=== PATIENT | female | born 1985 | race Caucasian/White ===

== ENCOUNTER → 2018-03-04 00:21 | Outpatient (CLI) | payer BC, SELFPAY ==
--- NOTE | 2018-03-04 07:52 | DI.REPORT_ITS ---
SYMPTOM/DIAGNOSIS: CHRONIC RUQ PAIN MILD BILIRUBIN ELEVATION ABDOMEN ULTRASOUND: The liver is normal in size and echogenicity. The gallbladder has a normal appearance. No sonographic Chacko's sign is seen. There is no biliary dilatation. The spleen, pancreas, kidneys and aorta appear normal. There is no ascites. IMPRESSION: Negative abdomen ultrasound.
== END ==
PROVIDERS: PCP Naturopath; Visit Provider Naturopath
DX: R10.11 Right upper quadrant pain (principal); R79.89 Other specified abnormal findings of blood chemistry
CPT/HCPCS: 76700

== ENCOUNTER 2018-04-11 00:26 | Outpatient (CLI) | payer BC, SELFPAY ==
--- NOTE | 2018-04-11 08:35 | DI.MRI_ITS ---
SYMPTOM/DIAGNOSIS: VERTIGO, UNSTEADINESS, R26.81, R42 BRAIN MRI: Routine noncontrast examination. No priors for comparison. MRI examination of the brain was performed according to the usual protocol. Ventricular system is normal in appearance. No signal abnormality identified in the brain. There is normal flow void in the [place] vasculature. The orbital and temporal bone structures appear intact. Diffusion weighted imaging is within normal limits with no evidence of cerebral infarction. Susceptibility weighted imaging shows no evidence of hemorrhage. CONCLUSION: Normal brain MRI.
== END 2018-04-11 00:46 ==
PROVIDERS: PCP Naturopath; Visit Provider Psychiatry & Neurology Neurology
DX: R42 Dizziness and giddiness (principal); R26.81 Unsteadiness on feet
CPT/HCPCS: 70551

== ENCOUNTER 2018-08-26 00:55 | Outpatient (CLI) | payer BC, SELFPAY ==
--- NOTE | 2018-08-26 15:14 | DI.US_ITS ---
SYMPTOMS/DIAGNOSIS: RT BREAST PAIN, PAINFUL LUMPY RT BREAST, N64.6, N63.10 RIGHT BREAST ULTRASOUND: The patient has a palpable abnormality in the lateral right breast. No cyst or mass is seen. There is a small lymph node in the 3:00 o'clock position 8 cm from the nipple. IMPRESSION: Small intramammary lymph node has a normal appearance. There are no suspicious findings.
== END 2018-08-26 01:15 ==
PROVIDERS: PCP Naturopath; Visit Provider Nurse Practitioner Family
DX: N64.4 Mastodynia (principal); N63.12 Unspecified lump in the right breast, upper inner quadrant; R59.0 Localized enlarged lymph nodes
CPT/HCPCS: 76642

== ENCOUNTER 2018-11-18 00:55 | Outpatient (CLI) | payer BC, SELFPAY ==
--- NOTE | 2018-11-18 13:12 | DI.US_ITS ---
SYMPTOMS/DIAGNOSIS: MID CYCLIC PELVIC PAIN AND BLEEDING, RIGHT LOWER QUADRANT ABDOMINAL PAIN, R10.31 PELVIC ULTRASOUND: Transabdominal and transvaginal examination was performed. The uterus measures 8.1 cm long x 4.4 cm AP x 7.3 cm transverse. The uterus is retroverted. The endometrial stripe is within normal limits at 0.9 cm. No myometrial mass is present. The right ovary measures 3.2 x 2.3 x 2.4 cm, the left ovary measures 3.8 x 2 x 1.8 cm. Small follicular cysts are seen. There is normal blood flow to the ovaries. No evidence of torsion is seen. No significant free pelvic fluid or hydronephrosis is identified. The right lower quadrant was evaluated sonographically. No sonographic abnormality is seen. IMPRESSION: Normal pelvic ultrasound.
== END 2018-11-18 01:15 ==
PROVIDERS: PCP Naturopath; Visit Provider Obstetrics & Gynecology Gynecology
DX: R10.31 Right lower quadrant pain (principal); R10.2 Pelvic and perineal pain; N92.1 Excessive and frequent menstruation with irregular cycle
CPT/HCPCS: 76830; 76856

== ENCOUNTER 2019-01-07 00:31 | Outpatient (CLI) | payer BC, SELFPAY ==
--- NOTE | 2019-01-07 07:00 | DI.US_ITS ---
SYMPTOM/DIAGNOSIS: PALPABLE BULGE LOWER RT ABD, BULGE SORE WITH ACTIVITY AND DIRECT PALPATION, EVALUATE FOR HERNIA VS VASCULAR HERNIA ULTRASOUND: An ultrasound of the right inguinal region was carried out. There is nothing to suggest an inguinal hernia. Note is made of multiple lymph nodes, the largest of which measures 1.6 by 0.4 by 1.3 cm. The study is otherwise unremarkable.
[2019-01-07 08:16] LABS: HCT 44.1 % (36.0-46.0); HGB 15.5 g/dL (12.0-15.5); Mean Corp. HGB Concentration 35.1 g/dL (32.0-36.0); Mean Corpuscular Hemoglobin 30.8 pg (27.0-33.0); Mean Corpuscular Volume 87.7 fL (80-95); Mean Platelet Volume 10.9 fL (8.0-11.0); Platelet Count 237 x1000/uL (130-400); RBC 5.03 m/cumm (4.00-5.20); RBC Distribution Width 13.8 % (11.7-14.6); White Blood Cell Count 3.56 k/cumm (4.4-10.8)
[2019-01-07 09:51] LABS: FREE T4 0.95 ng/dL (0.76-1.46); TSH 1.71 uIU/mL (0.358-3.74)
[2019-01-07 10:18] LABS: Ferritin 28 ng/mL (8-388)
[2019-01-07 21:44] LABS: T3,Free 3.6 pg/ml (2.8-5.3)
[2019-01-08 06:53] LABS: Vitamin D 25 Total 41.6 ng/ml (30-100)
== END 2019-01-07 00:51 ==
PROVIDERS: PCP Naturopath; Visit Provider Naturopath
DX: R53.83 Other fatigue (principal); R42 Dizziness and giddiness; R59.0 Localized enlarged lymph nodes; R19.03 Right lower quadrant abdominal swelling, mass and lump
CPT/HCPCS: 36415; 76857; 82306; 85027; 82728; 84439; 84443; 84481

== ENCOUNTER 2019-01-20 12:12 | Outpatient (REF) | payer BC, SELFPAY ==
[2019-01-21 12:02] LABS: Campylobacter PCR SEE COMMENTS; Salmonella PCR SEE COMMENTS; Shiga Toxin PCR SEE COMMENTS; Shigella/Enteroinvasive Ecoli SEE COMMENTS
== END 2019-01-20 12:32 ==
LOC: LBN 12:12
PROVIDERS: PCP Naturopath; Visit Provider Obstetrics & Gynecology Gynecology
DX: R19.7 Diarrhea, unspecified (principal)
CPT/HCPCS: 87505

== ENCOUNTER 2019-02-04 00:31 | Outpatient (CLI) | payer BC, SELFPAY ==
--- NOTE | 2019-02-04 12:00 | DI.US_ITS ---
SYMPTOMS/DIAGNOSIS: RT INGUINAL LYMPHADENOPATHY AND TENDERNESS TO PALPATION X 2 MONTHS, COMPARE TO 01/07/19 US BILATERAL INGUINAL ULTRASOUND: Bilateral inguinal ultrasound was carried out. In the left inguinal region, no mass or lymphadenopathy is seen. The right inguinal examination reveals two small lymph nodes. The largest of which measures 7 x 3 x 4.4 mm and appears decreased in size when compared with the previous study of 01/07/19 when the largest right inguinal lymph node measured 1.6 x 0.4 x 1.3 cm.
== END 2019-02-04 00:51 ==
PROVIDERS: PCP Naturopath; Visit Provider Naturopath
DX: R10.31 Right lower quadrant pain (principal); R59.0 Localized enlarged lymph nodes
CPT/HCPCS: 76882

== ENCOUNTER 2019-09-02 01:18 | Outpatient (CLI) | payer BC, SELFPAY ==
--- NOTE | 2019-09-02 12:25 | DI.US_ITS ---
EXAM: US BREAST RT LIMITED CLINICAL HISTORY: PALPABLE LYMPH NODES RT BREAST, COMPARE TO PREVIOUS TECHNIQUE: Ultrasound performed using standard protocol. COMPARISON: ABD PELVIS WITH CONTRAST from 11/25/2015 US breast RT complete from 08/26/2018 FINDINGS: The palpable abnormality was scanned. An 8 millimeter lymph node is seen corresponding to the palpab le abnormality in the 9 o'clock position 13 cm from the nipple. No suspicious features. No mass or cyst is identified. IMPRESSION: 8 millimeter lymph node corresponding to the palpable abnormality. No mass or cyst is identified.
--- NOTE | 2019-09-02 12:32 | DI.US_ITS ---
EXAM: US SOFT TISSUE HEAD OR NECK CLINICAL HISTORY: PALPABLE LYMPH NODES IN ANTERIOR CERVICAL CHAIN TECHNIQUE: Ultrasound performed using standard protocol. COMPARISON: No exams were available for comparison FINDINGS: There are normal-appearing lymph nodes in the right anterior cervical chain. Nodes show normal fatty hilum and thin hypoechoic cortex. No abnormally enlarged lymph nodes or masses are seen. The large st node measures 1 cm in greatest dimension. IMPRESSION: Normal-appearing right cervical lymph nodes.
--- NOTE | 2019-09-02 12:37 | DI.US_ITS ---
EXAM: US SOFT TISS EXTREMITY/GROIN CLINICAL HISTORY: PALPABLE LYMPH NODES IN INGUINAL REGION, COMPARE TO PREVIOUS TECHNIQUE: Ultrasound performed using standard protocol. COMPARISON: US hernia from 01/07/2019 US soft tiss extremity/groin from 02/04/2019 FINDINGS: There are normal appearing lymph nodes in the right groin. There is a thin hypoechoic cortex with a central fatty hilum. No abnormally enlarged or abnormal-appearing lymph nodes are seen. The largest lymph node measures 1.6 cm in length, unchanged from the 07 January examination. IMPRESSION: Normal-appearing right groin lymph nodes.
== END 2019-09-02 01:38 ==
PROVIDERS: PCP Naturopath; Visit Provider Naturopath
DX: R59.0 Localized enlarged lymph nodes (principal); R22.1 Localized swelling, mass and lump, neck; N63.11 Unspecified lump in the right breast, upper outer quadrant; R22.41 Localized swelling, mass and lump, right lower limb
CPT/HCPCS: 76536; 76642; 76882

== ENCOUNTER 2020-03-02 10:40 | Outpatient (REF) | payer BC, SELFPAY ==
--- NOTE | 2020-03-02 09:30 | PAPFT_PTH ---
PATIENT: Eli Hernandez LOC: [facility] U#:[id number] AGE/SX: 34/F ROOM: RE03/02/[address]: Alma Rosa Chong NP : 1985 BED: DIS: 03/02/2020 SPEC #: [id number] RECD: 03/02/20 17:18 STATUS: BRADYVinicio REQ #: [id number] DOMINIK: 03/02/20 09:[address]: Alma Rosa Chong NP DEPT: [facility] Cytology RECD BY: Cassandra Harris ENTERED: 03/02/20 17:19 SP TYPE: PAPFT OTHR DR: Diamond Patel I Tissues: 1 - CX/ENDOCX FOR PAP SMEARS Procedures: PAP THIN PREP/[facility] Screening HPV DNA PROBE Comments: [id number]
== END 2020-03-02 11:00 ==
LOC: LBN 10:40
PROVIDERS: PCP Naturopath; Visit Provider Nurse Practitioner Women's Health
DX: Z12.4 Encounter for screening for malignant neoplasm of cervix (principal); Z11.51 Encounter for screening for human papillomavirus (HPV)
CPT/HCPCS: 88142; 87624

== ENCOUNTER 2025-05-04 09:44 | Outpatient (REF) | payer BC, SELFPAY ==
--- NOTE | 2025-05-04 09:25 | PAPFT_PTH ---
PATIENT: Eli Hernandez LOC: [facility] U#:[id number] AGE/SX: 39/F ROOM: RE05/04/[address]: Alma Rosa Chong NP : 1985 BED: DIS: 05/04/2025 SPEC #: [id number] RECD: 05/04/25 17:17 STATUS: CARLO RECristal #: [id number] DOMINIK: 05/04/25 09:[address]: Alma Rosa Chong NP DEPT: [facility] Cytology RECD BY: Leslie Meyer ENTERED: 05/04/25 17:18 SP TYPE: PAPFT OTHR DR: Diamond Patel I Tissues: 1 - CX/ENDOCX FOR PAP SMEARS Procedures: PAP THIN PREP/[facility] Screening HPV DNA PROBE Comments: [id number] (HPV 16 & 18/45)
== END 2025-05-04 09:45 | disposition home or self-care (01) ==
LOC: LBN 09:44
PROVIDERS: PCP Naturopath; Visit Provider Nurse Practitioner Women's Health
DX: Z12.4 Encounter for screening for malignant neoplasm of cervix (principal)
CPT/HCPCS: 88142; 87624